=== PATIENT | female | born 1975 | race Hispanic/Latino ===

== ENCOUNTER → 2019-11-26 | Outpatient (CLI) | payer OTHER ==
[~2019-11-26] MED LIST: LEVOTHYROXINE100 MCG
--- NOTE | 2019-11-26 14:40 | Diagnostic Imaging Report ---
MRI of the left tibia/fibula without contrast. History: Leg pain. Stress fracture. Decreased range of motion. Pain not responding to conservative management. Technique: Multiplanar multisequence MRI of the left tibia/fibula without contrast. Comparison: None Findings: Nondisplaced obliquely oriented fracture involving the proximal medial tibia with associated mild bone marrow edema and mild adjacent soft tissue edema. This is best seen on coronal image 9 through 11, axial image 6 and 7 as well as sagittal image 14. The visualized muscles are normal in size, signal intensity and morphology. The visualized neurovascular bundles are intact. No ligamentous or tendon tear is seen. Impression: Nondisplaced obliquely oriented fracture involving the proximal medial tibia with associated mild bone marrow edema and mild adjacent soft tissue edema. Signed by: Dr. Hadley Meyers M.D. on 11/26/2019 2:36 PM
== END ==
LOC: MRI 08:37
PROVIDERS: ATTEND Specialist
DX: S82.102A Unspecified fracture of upper end of left tibia, initial encounter for closed fracture (principal)

== ENCOUNTER → 2019-12-01 | Outpatient (CLI) | payer OTHER | LOC: DX 10:38 | PROVIDERS: ATTEND Specialist | DX: M84.362A Stress fracture, left tibia, initial encounter for fracture (principal) | CPT/HCPCS: 77080 ==